=== PATIENT | female | born 1970 | race Two or more races ===

== ENCOUNTER 2018-05-24 17:52 | Emergency (ER) | payer OTHER ==
[~2018-05-24] VITALS: Ht 157.5 cm; Wt 56.2 kg
[2018-05-24] MEDS ORDERED: HYZAAR 100-251 EACH (18:27)
[2018-05-24] MEDS ORDERED: ALBUTEROL0.63 MG/3 (18:27)
[2018-05-24] MEDS ORDERED: LIPITOR20 MG (18:28)
[2018-05-24] MEDS ORDERED: FOSAMAX70 MG (18:28)
[2018-05-24] MEDS ORDERED: CENTRUM SILVER1 EAC2 (18:28)
[2018-05-24] MEDS ORDERED: FIORINAL 50-321 EACH (18:29)
[2018-05-24] MEDS ORDERED: CALTRATE 600 +1 EACH (18:29)
[2018-05-24] MEDS ORDERED: GRALISE600 MG (18:29)
[2018-05-24] MEDS ORDERED: CYMBALTA60 MG (18:29)
[2018-05-24] MEDS ORDERED: CLONAZEPAM1 MG (18:30)
[2018-05-24] MEDS ORDERED: CLONAZEPAM0.5 MG (18:31)
[2018-05-24] MEDS ORDERED: PNEU16DI2 (18:31)
[2018-05-24] MEDS ORDERED: ZYPREXA5 MG (18:31)
== END 2018-05-24 22:01 | disposition home or self-care (01) ==
LOC: ER 17:52
DX: B34.9 Viral infection, unspecified (principal); R53.81 Other malaise

== ENCOUNTER 2019-04-18 12:49 | Emergency (ER) | payer OTHER ==
[~2019-04-18] VITALS: Ht 157.5 cm; Wt 57.6 kg
[~2019-04-18 12:49] MED LIST: ALBUTEROL0.63 MG/3; CALTRATE 600 +1 EACH; CENTRUM SILVER1 EAC2; CLONAZEPAM0.5 MG; CLONAZEPAM1 MG; CYMBALTA60 MG; FIORINAL 50-321 EACH; FOSAMAX70 MG; GRALISE600 MG; HYZAAR 100-251 EACH; LIPITOR20 MG; PNEU16DI2; ZYPREXA5 MG
== END 2019-04-18 14:12 | disposition home or self-care (01) ==
LOC: ER 12:49
DX: M54.5 Low back pain (principal)

== ENCOUNTER 2019-06-27 13:49 | Emergency (ER) | payer OTHER ==
[~2019-06-27] VITALS: Ht 157.5 cm; Wt 59.4 kg
[2019-06-27] MEDS ORDERED: GLIMEPIRIDE2 MG (14:24)
== END 2019-06-27 17:56 | disposition home or self-care (01) ==
LOC: ER 13:49
DX: M54.5 Low back pain (principal)

== ENCOUNTER 2019-10-03 11:43 | Emergency (ER) | payer OTHER ==
[~2019-10-03] VITALS: Ht 157.5 cm; Wt 61.2 kg
[~2019-10-03 11:43] MED LIST changes: +GLIMEPIRIDE2 MG
[2019-10-03] MEDS ORDERED: LYRICA20 MG/1 ML (12:44)
== END 2019-10-03 15:32 | disposition home or self-care (01) ==
LOC: ER 11:43
DX: E11.649 Type 2 diabetes mellitus with hypoglycemia without coma (principal); M54.5 Low back pain